=== PATIENT | male | born 1990 | race Two or more races ===

== ENCOUNTER 2024-10-08 22:22 | Emergency (ER) | payer MEDICAID ==
[~2024-10-08] VITALS: Ht 170.2 cm; Wt 118.0 kg
[2024-10-08 22:49] VITALS: O2SAT 99
[2024-10-09] MEDS: TETRACAINE 0.5% OPHTH DROPS 4ML BOTHEYE ONE (01:00)
[2024-10-09] MEDS: FLUORESCEIN SODIUM 1MG/STRIP BOTHEYE ONE (01:00)
[2024-10-09] MEDS ORDERED: ERYT1OIN6 EACHEYE (01:16)
[2024-10-09 03:08] VITALS: BP 138/88; PULSE 78; RESP 16; TEMP 36.72516; O2SAT 100
== END 2024-10-09 03:16 | disposition home or self-care (01) ==
LOC: ER 22:22
DX: S05.00XA Injury of conjunctiva and corneal abrasion without foreign body, unspecified eye, initial encounter (principal); H57.11 Ocular pain, right eye; Y08.89XA Assault by other specified means, initial encounter; Y93.89 Activity, other specified; Y92.89 Other specified places as the place of occurrence of the external cause; Y99.8 Other external cause status
CPT/HCPCS: 70450; 70486; 99284; Z7610; C1893

== ENCOUNTER 2024-10-12 13:17 | Emergency (ER) | payer MEDICAID ==
[~2024-10-12] VITALS: Ht 170.2 cm; Wt 92.9 kg
[~2024-10-12 13:17] MED LIST: ERYT1OIN6 EACHEYE
[2024-10-12 13:19] VITALS: O2SAT 99
[2024-10-12 13:20] VITALS: BP 146/85; PULSE 76; RESP 18; TEMP 98; O2SAT 100
[2024-10-12] MEDS: FLUORESCEIN SODIUM 1MG/STRIP BOTHEYE ONE (15:09)
[2024-10-12] MEDS: TETRACAINE 0.5% OPHTH DROPS 4ML BOTHEYE ONE (15:09)
== END 2024-10-12 17:25 | disposition home or self-care (01) ==
LOC: ER 13:17
DX: S05.01XA Injury of conjunctiva and corneal abrasion without foreign body, right eye, initial encounter (principal); Y04.0XXA Assault by unarmed brawl or fight, initial encounter; Y93.89 Activity, other specified; Y92.89 Other specified places as the place of occurrence of the external cause; Y99.8 Other external cause status
CPT/HCPCS: 99283

== ENCOUNTER 2024-10-14 08:41 | Emergency (ER) | payer MEDICAID ==
[~2024-10-14] VITALS: Ht 182.9 cm; Wt 109.0 kg
[2024-10-14 08:51] VITALS: O2SAT 99
[2024-10-14] MEDS ORDERED: HYDROCODONE/ACETAMINOPHEN 5/325MG TABLET PO STA (10:27)
[2024-10-14 10:41] VITALS: BP 164/67
[2024-10-14] MEDS: TETRACAINE 0.5% OPHTH DROPS 4ML RIGHTEYE ONE (10:41)
[2024-10-14] MEDS: TETRACAINE 0.5% OPHTH DROPS 4ML RIGHTEYE SCH (10:41)
[2024-10-14] MEDS: HYDROCODONE/ACETAMINOPHEN 5/325MG TABLET PO SCH (10:41)
[2024-10-14] MEDS ORDERED: NAPR-681 PO (11:00)
[2024-10-14 11:20] VITALS: PULSE 76; RESP 16; TEMP 37.05852; O2SAT 100
== END 2024-10-14 11:20 | disposition home or self-care (01) ==
LOC: ER 08:41
DX: S02.2XXA Fracture of nasal bones, initial encounter for closed fracture (principal); S05.01XA Injury of conjunctiva and corneal abrasion without foreign body, right eye, initial encounter; W22.8XXA Striking against or struck by other objects, initial encounter; Y93.89 Activity, other specified; Y92.89 Other specified places as the place of occurrence of the external cause; Y99.8 Other external cause status
CPT/HCPCS: 99283